=== PATIENT | male | born 1940 | race Caucasian/White ===

== ENCOUNTER → 2016-05-21 | Outpatient (CLI) | payer OTHER ==
--- NOTE | 2016-05-21 15:52 | DX ---
Chest, PA and Lateral History: Cough, fever, J20.9, R50.9, R05 Findings: There are vague small nodules in the right upper and both lower lobes. There is possibly s ubtle right lower lobe infiltrate. Heart size is normal. There is no adenopathy or mass lesion. There is no pleural effusion . There is a mild thoracic dextro scoliosis. Impression: Bilateral lung nodules. Recommend noncontrast CT. Of course, if there are any old outside chest x-rays, we would be happy to review them to assess for interval change. A Serious or Unexpected Disease test result has been communicated via the [employer] Critical Result system on 05/21/2016 15:50, Message ID [id number].
== END ==
LOC: FIMAGING 15:31
PROVIDERS: ATTEND Family Medicine
DX: R05 Cough (principal); R50.9 Fever, unspecified; R91.8 Other nonspecific abnormal finding of lung field

== ENCOUNTER → 2018-01-31 | Outpatient (CLI) | payer OTHER | LOC: FIMAGING 10:06 | PROVIDERS: ATTEND Family Medicine | DX: M51.16 Intervertebral disc disorders with radiculopathy, lumbar region (principal) ==

== ENCOUNTER → 2018-02-22 | Outpatient (CLI) | payer OTHER | LOC: FIMAGING 18:51 | PROVIDERS: ATTEND Family Medicine | DX: M54.16 Radiculopathy, lumbar region (principal); M48.061 Spinal stenosis, lumbar region without neurogenic claudication; M51.36 Other intervertebral disc degeneration, lumbar region ==

== ENCOUNTER 2018-03-16 05:44 | Day surgery (SDC) | payer OTHER ==
--- NOTE | 2018-03-15 19:24 | PDANEPAE ---
ANE History of Present Illness 77 with back pain/left leg pain, lumbar spinal stenosis ANE Past Medical History - Cardiovascular History Hx Hypertension: No Hx Arrhythmias: No Hx Chest Pain: No Hx Coronary Artery / Peripheral Vascular Disease: No Hx CHF / Valvular Disease: No Hx Palpitations: No Cardiovascular History Comment: CHEST TIGHTNESS FOR 2 DAY POST STOPPING MEDROL DOSE PACK SEEN BY PCP EKG DONE,RECOMMENDED PT STOP TAKING IBUPROFEN,SYMPTOMS OF CHEST TIGHTNESS RESOLVED. NO FURTHER TESTING RECOMMENDED - Pulmonary History Hx COPD: No Hx Asthma/Reactive Airway Disease: No Hx Recent Upper Respiratory Infection: No Hx Oxygen in Use at Home: No Hx Sleep Apnea: No Sleep Apnea Screening Result - Last Documented: Negative - Neurologic History Hx Cerebrovascular Accident: No Hx Seizures: No Hx Dementia: No - Endocrine History Hx Diabetes: No Hypothyroid: No Hyperthyroid: No Obesity: no - Renal History Hx Renal Disorders: Yes Renal History Comment: PROSTATECTOMY - Liver History Hx Hepatic Disorders: No - Neurological & Psychiatric Hx Hx Neurological and Psychiatric Disorders: No - Cancer History Hx Cancer: Yes Cancer History Comment: PROSTATE. SKIN - Congenital Disorder History Hx Congenital Disorders: No - GI History GERD: no Hx Gastrointestinal Disorders: No - Other Health History Other Health History: SPINAL STENOSIS. N/T LT HIP,LEG&FOOT - Chronic Pain History Chronic Pain: Yes (LT HIP DOWN LEG) - Surgical History Prior Surgeries: LT SHLDR SCOPE 2015. R HIP REPLACEMENT REVISION 2014. PROSTATECTOMY. METATARSAL FX L FOOT. PELVIC FX ANE Review of Systems Review of systems is: negative Review of Systems: - Exercise capacity METS (RN): 6 METS ANE Patient History - Allergies Allergies/Adverse Reactions: No Known Allergies Allergy (Unverified 10/19/09 12:34) - Home Medications Home medications: home medication list seen and reviewed Home Medications: Aspirin [Aspirin 325 mg (OTC)] 325 mg PO DAILY 02/28/13 [Last Taken 03/09/18] Simvastatin [Zocor 20 mg (RX)] 20 mg PO HS 02/28/13 [Last Taken 03/15/18] Oxycodone-Acetaminophen 5-325 PRN 03/10/18 [Last Taken 03/09/18] ZOLPIDEM TARTRATE PRN 03/10/18 [Last Taken 03/15/18] Tizanidine HCl 03/16/18 [Last Taken 03/15/18] - NPO status NPO Status: no food or drink >8 hours - Anes Hx Anes Hx: no prior problems - Smoking Hx Smoking Status: Never smoked Marijuana use: No - Alcohol Use Alcohol Use: Rarely - Family Anes Hx Family Anes Hx: none Family Hx Anesthesia Complications: NEG ANE Labs/Vital Signs - Vital Signs Height: 175.26 cm Weight: 72.575 kg ANE Physical Exam - Airway Neck exam: FROM Mallampati Score: Class 2 Mouth exam: normal dental/mouth exam - Pulmonary Pulmonary: no respiratory distress, clear to auscultation - Cardiovascular Cardiovascular: regular rate and rhythym, no murmur, rub, or gallop - ASA Status ASA Status: II ANE Anesthesia Plan Anesthesia Plan: general endotracheal anesthesia
[2018-03-16] MEDS ORDERED: LR 1,000 ML IV ONE (06:08)
[2018-03-16] MEDS ORDERED: PROPOFOL 200 MG/20 ML VIAL ONE (06:44)
[2018-03-16] MEDS ORDERED: fentaNYL 250 MCG/5 ML INJ ONE (06:44)
[2018-03-16] MEDS ORDERED: SUCCINYLCHOLINE CHLORIDE 200 MG/10 ML SYR IVP ONE (06:44)
--- NOTE | 2018-03-16 06:45 | PDHPUP ---
History & Physical Update H&P update statement: This history and physical update is based on an assessment of the patient which was completed after admission or registration (within 24 hours), but prior to the surgery/procedure. H&P update: H&P reviewed & patient examined, no change in patient's condition since H&P completed
[2018-03-16] MEDS ORDERED: ceFAZolin 2 GM/DEXTROSE 100 ML IV ONE (06:46)
[2018-03-16] MEDS ORDERED: TRANEXAMIC ACID 1,000 MG in NS 100 ML IV ONE (06:46)
[2018-03-16] MEDS ORDERED: SURGIFLO MATRIX KIT WITH THROMBIN 8 ML TP ONE (06:56)
[2018-03-16] MEDS ORDERED: BUPIVACAINE/EPI 0.5% 30 ML SDV ONE (06:56)
[2018-03-16] MEDS ORDERED: VANCOMYCIN 1 GM VIAL ONE (06:56)
[2018-03-16] MEDS ORDERED: BACITRACIN 50,000 UNITS/10 ML SYR IRR ONE (06:56)
[2018-03-16] MEDS ORDERED: ePHEDrine SULFATE 25 MG/5 ML SYR ONE (07:52)
[2018-03-16] MEDS ORDERED: HYDROmorphONE/DILAUDID 2 MG/ML INJ IVP PRN (08:14)
[2018-03-16] MEDS ORDERED: PROMETHAZINE HCL 25 MG/ML INJ IVP PRN (08:14)
[2018-03-16] MEDS ORDERED: MEPERIDINE 25 MG/0.5 ML AMP IVP PRN (08:14)
[2018-03-16] MEDS ORDERED: fentaNYL 100 MCG/2 ML INJ IVP PRN (08:14)
[2018-03-16] MEDS ORDERED: NALOXONE HCL 0.4 MG/ML INJ IVP PRN (08:14)
--- NOTE | 2018-03-16 08:14 | POSTANESTH ---
Post Anesthetic Evaluation Cardiovascular Status: Normal, Stable Respiratory Status: Normal, Stable Level of Consciousness/Mental Status: Can Participate in Eval Pain Control: Adequate, Prn Tx Ordered Nausea/Vomiting Control: Adequate, Prn Tx Ordered Complications Possibly Related to Anesthesia: None Noted
[2018-03-16] MEDS ORDERED: KETOROLAC 30 MG/1 ML SDV ONE (08:32)
[2018-03-16 10:46] VITALS: BP 124/69
--- NOTE | 2018-03-16 13:11 | SUROPNOTE ---
[facility] Operative Report - Surgery Date: 03/16/18 Pre-operative Diagnosis: Lumbar Spinal Stenosis Post-operative Diagnosis: Same Procedure: Rt L3/4 Minimally Invasive Lumbar Zhou-laminectomy and Bilateral Decompression Use of a surgical microscope Use of intra-operative neuromonitoring, including EMG, MEP, and SSEP modalities Surgeon: Madi Busby MD Livestock Farmworker: Juhi Ghosh Anesthesia: General endotracheal anesthesia Findings: As expected lumbar spinal stenosis Estimated Blood Loss: 10mL Drains: None Specimens: None Complications: None Condition: Transferred to PACU in stable condition. Implants: None Indications: This patient was seen in my office and diagnosed with lumbar spinal stenosis. I have explained all options of treatment for the patient, and the patient has elected to proceed with operative management. I have explained all risks, benefits, and alternatives of the proposed procedure. The risks that we have discussed include , blindness, nerve damage, infection, dural tear, failure of surgery to alleviate pre-operative symptoms, possible to conversion to an open decompression, and possible need for further operation. In addition to the aforementioned procedure, I also discussed with the patient that other procedures may be indicated during the course of surgery that would be considered in the patients best interest. The patient expressed understanding of this. Pre-operative: The proposed L3/4 incision site was marked in the pre-operative holding area by me. The patient was then taken to the operating room in stable condition. Following smooth induction of general anesthesia, the patient was positioned prone on a Aryan table in mild reverse Trendelenburg with all down surfaces well-padded. The patient was then prepped and draped in the usual sterile fashion. Pre-operative antibiotics were administered within one hour of the incision. A surgical timeout was performed, and all parties involved in the procedure were in agreement on the correct patient, location, and procedure to be performed. Level identification: The proposed L3 and L4 levels were identified using C-arm fluoroscopy and the skin was marked for the proposed incision. Based on pre-operative templating, a spinal needle was inserted under fluoroscopic guidance to the level of the decompression to be performed, 1.5cm from midline on the patients side. Following radiographic confirmation of proposed endoscopic trajectory, a 25mm longitudinal incision was made through both the skin and fascia in an expected trajectory. Electrocautery was used to coagulate any bleeding vessels identified above the level of the fascia. A blunt probe was then passed through the fascial incision and docked on the lateral pars of the proposed level of dissection. Serial dilation was then performed, up to a size that would accommodate placement of a Metrx decompression tube. A sterile articulating arm was then attached to the table and affixed to the tube. Proper trajectory was again confirmed by lateral radiograph. The tube was docked on the caudal aspect of the cephalad level. Decompression: A high-speed yolanda was used to perform a hemilaminectomy of both the level cephalad and caudal to be decompressed. A partial facetectomy was performed at this level to allow for proper decompression, involving less than one-third of the medial facet at this level. The ligamentum flavum was left intact as a buffer to protect the dura while the ventral spinal process and contralateral lamina using a high-speed yolanda. At this time the ligamentum flavum was elevated from the dura using blunt dissectors and resected using Kerrison rongeurs. The contralateral lateral recess and foramina were identified and decompressed in a similar fashion. A Nolan ball probe was used to ensure thorough decompression of both the exiting and traversing nerve root on both sides. At this time, a ball probe was used to probe all foraminae at the affected levels. Where necessary, a small Kerrison rongeur was used to decompress remaining bone and soft tissue so that all nerve roots would traverse freely through the foraminae. In total, the cephalad half of the L4 lamina and caudal half of L3 lamina were removed. Closure: The surgical field was then copiously irrigated with sterile saline. Vancomycin powder was then applied to the surgical field. #1 braided and absorbable interrupted sutures were used to repair the spinous processes and interspinous ligaments. There was good bony apposition noted between all repaired spinous processes. Then 2-0 interrupted sutures were used to repair the dermal layer, and a separate 3-0 monofilament suture was used to repair the subcutaneous layer in a running fashion. All sutures used were absorbable. Topical adhesive was then applied to the skin and allowed to dry. A sterile island dressing was applied over the surgical incision. A surgical count was performed before initiation of closure and following the procedure, and all were correct. I was present for the entire procedure. Surgical microscope use: A surgical microscope was utilized throughout the decompressive portion of this case. This was deemed necessary for safe and accurate surgical decompression of affected nerve roots. Neuromonitoring: EMG, MEP, and SSEP were used throughout the case from incision until the beginning of closure. There were no significant changes throughout the case, and SSEP signals were at their pre-surgical baseline levels before surgical closure was initiated. preschool teacher assistant: A assistant plant control operator was used throughout the case, and deemed necessary for safe neural retraction, hemostasis, and suction. Recovery: The patient was extubated uneventfully in the operating room. The patient was taken to the recovery room in stable condition. Sequential compression devices for VTE prophylaxis were applied to the patients lower extremities, and were ordered to be used while the patient was non-ambulatory. Chemical VTE prophylaxis was considered to be contraindicated for this patient because of the risk of bleeding near the epidural space. Madi Busby MD
== END 2018-03-16 10:49 | disposition home or self-care (01) ==
LOC: FSGY 05:44
PROVIDERS: ATTEND Orthopaedic Surgery Orthopaedic Surgery of the Spine
PROC: 00NY0ZZ Release Lumbar Spinal Cord, Open Approach (ICD-10-PCS; principal; 2018-03-16 07:15)
PROC: 4A10X4G Monitoring of Central Nervous Electrical Activity, Intraoperative, External Approach (ICD-10-PCS; principal; 2018-03-16 07:15)
PROC: BR19YZZ Fluoroscopy of Lumbar Spine using Other Contrast (ICD-10-PCS; principal; 2018-03-16 07:15)
DX: M48.061 Spinal stenosis, lumbar region without neurogenic claudication (principal); M51.16 Intervertebral disc disorders with radiculopathy, lumbar region; M51.36 Other intervertebral disc degeneration, lumbar region; R03.0 Elevated blood-pressure reading, without diagnosis of hypertension; G47.00 Insomnia, unspecified; R07.89 Other chest pain; R26.2 Difficulty in walking, not elsewhere classified; I25.10 Atherosclerotic heart disease of native coronary artery without angina pectoris; E78.5 Hyperlipidemia, unspecified; E03.9 Hypothyroidism, unspecified; M25.552 Pain in left hip; E55.9 Vitamin D deficiency, unspecified; Z85.46 Personal history of malignant neoplasm of prostate; Z96.641 Presence of right artificial hip joint
CPT/HCPCS: J0330; J0690; J1885; J2704; J3010; J3370